=== PATIENT | male | born 1955 | race Caucasian/White ===

== ENCOUNTER 2018-02-18 04:36 | Emergency (ER) | payer BC ==
[~2018-02-18] VITALS: Ht 182.9 cm; Wt 106.6 kg
[~2018-02-18 04:36] MED LIST: Z PRILOSEC PO; Z.0.AMLODIPINE BESY1 PO; Z.0.BENICAR40 MG PO; Z.0.LIPITOR20 MG PO; Z.0.LISINOPRIL10 MG PO; Z.0.NORVASC10 MG PO; Z.0.NORVASC5 MG PO
== END 2018-02-18 05:20 | disposition home or self-care (01) ==
LOC: ER 04:36
DX: M25.532 Pain in left wrist (principal); M10.032 Idiopathic gout, left wrist; I10 Essential (primary) hypertension; G47.30 Sleep apnea, unspecified
CPT/HCPCS: 99282

== ENCOUNTER 2020-02-11 14:19 | Emergency (ER) | payer BC, OTHER ==
[~2020-02-11] VITALS: Ht 182.9 cm; Wt 106.6 kg
[2020-02-11] MEDS ORDERED: TETANUS/DIPHTHERIA TOX ADULT 0.5 ML SYR IM ONE (14:45)
--- NOTE | 2020-02-11 14:50 | NUR ---
PATIENT TO RADIOLOGY AT THIS TIME
--- NOTE | 2020-02-11 15:55 | Emergency Department Note ---
History of Present Illnes History of Present Illness Chief Complaint: Laceration History of Present Illness This is a 64 year old male PATIENT IN FROM HOME WITH COMPLAINTS OF LAC TO LEFT THUMB; STATES WAS CUTTING SOME WOOD AND CUT HIS THUMB ON A BANDSAW. NO BLEEDING NOTED, PATIENT DENIES PAIN AT THIS TIME. LAC NOTED TO LEFT THUMB - NO NAILBED INVOLVEMENT. 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 Any updates have been documented here. Past Medical History Recent Fever: No Clinical Suspicion of Infectio: No New/Unexplained Change in Ment: No Past Medical History: Hypertension Other Medical History: SLEEP APNEA, GOUT Other Surgery: KNEE R Social History Smoking Cessation: Never Smoker Counseling Performed: No Alcohol Use: Social Any Illegal Drug Use: No Physically hurt or threatened: No Other Last Tetanus: UNK Any Pre-Existing Lines (PICC,: No Review of Systems Review of Systems Constitutional: Reports no symptoms EENTM: Reports no symptoms Cardiovascular: Reports no symptoms Respiratory: Reports no symptoms Gastrointestinal: Reports no symptoms Genitourinary: Reports no symptoms Musculoskeletal: Reports no symptoms Integumentary: Reports as per HPI Neurological: Reports no symptoms Psychological: Reports no symptoms Endocrine: Reports no symptoms Hematological/Lymphatic: Reports no symptoms Physical Exam Related Data Allergies: Coded Allergies: No Known Allergies (Unverified , 12/09/11) Triage Vital Signs Vital Signs Date Time Temp Pulse Resp B/P (MAP) Pulse Ox O2 Delivery O2 Flow Rate FiO2 02/11/20 14:33 98.1 57 16 147/75 97 Room Air Vital signs reviewed: Yes Physical Exam CONSTITUTIONAL Constitutional: Present well-developed, Present well-nourished HENT HENT: Present normocephalic, Present atraumatic, Present oropharynx clear/moist, Present nose normal HENT L/R: Present left ext ear normal, Present right ext ear normal EYES Eyes: Reports PERRL, Reports conjunctivae normal NECK Neck: Present ROM normal PULMONARY Pulmonary: Present effort normal, Present breath sounds normal CARDIOVASCULAR Cardiovascular: Present regular rhythm, Present heart sounds normal, Present capillary refill normal, Present normal rate GASTROINTESTINAL Abdominal: Present soft, Present nontender, Present bowel sounds normal GENITOURINARY Genitourinary: Present exam deferred SKIN Skin: Present warm, Present dry, Present other (1.5 CM DISTAL THUMB LAC, APPEARS SUPERFICIAL, NO NAIL OR NAILBED INVOLVEMENT) MUSCULOSKELETAL Musculoskeletal: Present ROM normal NEUROLOGICAL Neurological: Present alert, Present oriented x 3, Present no gross motor or sensory deficits PSYCHOLOGICAL Psychological: Present mood/affect normal, Present judgement normal Results Imaging Imaging results reviewed: Yes Procedures Laceration Laceration: Laceration 1 Site: hand (DISTAL THUMB PAD) Side: left Size (cm): 1.5 Description: linear Skin layer closed with: other (DERMABOND) Additional comments CLEANSED WITH HIBICLENS, COPIOUS STERILE WATER Assessment & Plan Medical Decision Making MDM THUMB LAC - CHECK XRAY R/O FB OR BONE INVOLVEMENT Reassessment Reassessment DC HOME, KEFLEX 500 TID X 1 WEEK, F/U PCP Assessment & Plan Final Impression: (1) Laceration of thumb, left Depart Disposition: HOME, SELF-CARE Last Vital Signs Date Time Temp Pulse Resp B/P (MAP) Pulse Ox O2 Delivery O2 Flow Rate FiO2 02/11/20 14:33 98.1 57 16 147/75 97 Room Air Home Meds Reported Medications Amlodipine Besylate (Amlodipine Besylate) 10 Mg Tablet, 10 MG PO DAILY 01/04/12 Olmesartan Medoxomil (Benicar) 40 Mg Tablet, 40 MG PO DAILY 01/04/12 Medications in the ED Tetanus/ Diphtheria Toxoids 0.5 ml ONCE ONCE IM Last administered on 02/11/20at 14:40; Admin Dose 0.5 ML; Start 02/11/20 at 14:45; Stop 02/11/20 at 14:46; S YOU Okeefe DC, MD Feb 11, 2020 15:55
[2020-02-11 15:57] VITALS: BP 142/84
--- NOTE | 2020-02-11 15:59 | Diagnostic Imaging Report ---
Exam: Left thumb radiographs-4 views History: Left thumb laceration. Comparison: None. Findings/Impression: No evidence of acute fracture or malalignment. Soft tissue edema in the thumb. Small soft tissue laceration in the palmar aspect of the distal thumb. No evidence of radiopaque foreign body. Mild degenerative changes in the interphalangeal joints. Signed by: Dr. Jorge Espinoza MD on 02/11/2020 3:56 PM
--- OUTSIDE RECORDS SUMMARY | 2020-02-11 17:00 | XMS REPORT | Continuity of Care Document ---
Author Author [facility] t Organization [facility] Address [address] [place] [address] Phone Unavailable Care Team Providers Care Appliance Installer Name Role Phone CHUCK LUA PCP Bela CHAPMAN Attphys Unavailable Payers Payer Name Policy Type Policy Number Effective Date Expiration Date S y[place] [employer] [id number] 2004 00:00:00 [facility] Problems Condition Name Condition Details Condition Category Status Onset Date Resolution Date Last Treatment Date Treating Clinician Comments Source Laceration of left thumb Problem Active [facility] Allergies, Adverse Reactions, Alerts This patient has no known allergies or adverse reactions. Social History Social Habit Start Date Stop Date Quantity Comments Source Sex Assigned At 1955 00:00:00 1955 00:00:00 Male [facility] Medications Ordered Medication Name Filled Medication Name Start Date Stop Da te Current Medication? Ordering Clinician Indication Dosage Frequency Signature (SIG) Comments Components Source Amlodipine Besylate Amlodipine Besylate Yes 10 Daily [facility] Olmesartan Medoxomil (Benicar) 40 Mg TABLET Olmesartan Medoxomil (Benicar) 40 Mg TABLET Yes 40 Daily [facility] Amlodipine Besylate (Norvasc) 5 Mg TABLET Amlodipine B esylate (Norvasc) 5 Mg TABLET 2012-01-04 00:00:00 No 5 Daily [facility] Amlodipine Besylate (Norvasc) 10 Mg TABLET Amlodipine Besylate (Norvasc) 10 Mg TABLET 2012-01-04 00:00:00 No 10 Daily [facility] Atorvastatin Calcium (Lipitor) 20 Mg TABLET Atorvastat in Calcium (Lipitor) 20 Mg TABLET 2012-01-04 00:00:00 No 20 Daily [facility] Lisinopril Lisinopril 2012-01-04 00:00:00 No 10 Sejal ly [facility] Omeprazole (Prilosec) 10 Mg CAPSULE. Omeprazole (Prilosec) 10 Mg CAPSULE. 2012-01-04 00:00:00 No 10 Daily [facility] Vital Signs Vital Name Observation Time Observation Value Comments Source Body Temperature 2020-02-11 15:57:00 98.0 [degF] [facility] Weight 2020-02-11 14:33:00 235 [lb_av] [facility] BMI (Body Mass Index) 2020-02-11 14:33:00 31.9 kg/m2 [facility] Procedures This patient has no known procedures. Plan of Care Planned Activity Planned Date Details Comments Source Instructions Laceration [facility] Encounters Start Date/Time End Date/Time Encounter Type Admission Type Attendi [facility] Care Department Encounter ID Source 2020-02-11 14:54:00 2020-02-11 16:22:00 Departed Emergency Room [address] [facility] [id number] [facility] 2018-02-18 04:36:00 2018-02-18 05:20:[address] [facility] [id number] [facility] Results Test Description Test Time Test Comments Results Result Comments Source FINGER LEFT 2020-02-11 15:54:00 [facility] [address] [address] Patient Name: GUANACO LIGHT MR #: [id number] : 1955 Age/Sex: 64/M Req #: [id number] Adm Physician: Ordered by: YOU CHAPMAN MD Report #: [id number] Location: ER Room/Bed: Procedure: [id number] DX/FINGER LEFT Exam Date: 02/11/20 Exam Time: 1440 REPORT STATUS: Signed Exam: Left thumb radiographs-4 views History: Left thumb laceration. Comparison: None. Findings/Impression: No evidence of acute fracture or malalignment. Soft tissue edema in the thumb. Small soft tissue laceration in the palmar aspect of the distal thumb. No evidence of radiopaque foreign body. Mild degenerative changes in the interphalangeal joints. Signed by: Dr. Robinson Bruner MD on 02/11/2020 3:56 PM Dictated By: ROBINSON BRUNER MD [id number] Transcribed By: GAURI on 02/11/201555 COPY TO: YOU CHAPMAN MD
== END 2020-02-11 16:22 | disposition home or self-care (01) ==
LOC: ER 14:54
DX: S61.012A Laceration without foreign body of left thumb without damage to nail, initial encounter (principal); W29.8XXA Contact with other powered hand tools and household machinery, initial encounter; Y92.008 Other place in unspecified non-institutional (private) residence as the place of occurrence of the external cause; I10 Essential (primary) hypertension; G47.30 Sleep apnea, unspecified; M10.9 Gout, unspecified
CPT/HCPCS: 90471; 90714; 99284

== ENCOUNTER 2020-12-27 17:35 | Emergency (ER) | payer MEDICARE, OTHER ==
[~2020-12-27] VITALS: Ht 182.9 cm; Wt 99.8 kg
[2020-12-27] MEDS ORDERED: OFLOXACIN5 ML OP (17:53)
[2020-12-27] MEDS ORDERED: PATADAY2.5 ML OP (17:54)
[2020-12-27] MEDS ORDERED: TETRACAINE HCL 0.5% OPTH SOLN 4 ML BTL ONE (17:55)
[2020-12-27] MEDS ORDERED: FLUORESCEIN SOD(OPTH) 1 MG STRP ONE (17:55)
[2020-12-27] MEDS ORDERED: TETRACAINE HCL 0.5% OPTH SOLN 4 ML BTL OP ONE (18:00)
[2020-12-27] MEDS ORDERED: FLUORESCEIN SOD(OPTH) 1 MG STRP OP ONE (18:00)
== END 2020-12-27 18:18 | disposition home or self-care (01) ==
LOC: ER 17:53
DX: H10.12 Acute atopic conjunctivitis, left eye (principal); I10 Essential (primary) hypertension
CPT/HCPCS: 99282